=== PATIENT | female | born 1975 | race Caucasian/White ===

== ENCOUNTER 2025-01-29 13:49 | Outpatient (AMB) | payer OTHER, SELFPAY ==
--- NOTE | 2025-01-29 13:51 | A.OFFVIS_ITS ---
Vital Signs 01/29/25 13:53 Height 5 ft 3 in Weight 158 lb 11.725 oz BMI 28.1 BP 115/59 L Blood Pressure Location Lt brachial Position Sitting Pulse 89 Intake Visit Reasons: Gerd , referred by Dr. Hortensia Chaudhry Intake Note: Valerie presents in the office as a new patient for GERD. CC: States that when she eats she starts coughing and has issues with GERD. Needle Leader Required: No Allergies No Known Allergies Allergy (Verified 01/29/25 13:55) HPI HPI Gerd , referred by Dr. Hortensia Chaudhry: Details: HPI 50 yr old f with hx of GERD, hyperlipidemia, here for assessment She has 19 years of burning pain and also acid reflux can happen maybe once a month can be worse with some foods and give her more acid reflux she denies dysphagia, she can have coughing attacks if eats more than should pain can be 8/10, and is like contractions she has also noted worsening migraines can wake up her at night --reflux with pain and improves with massaging she has been on ppi prn she has constipation, but she goes daily, hemorrhoid comes out no blood in stool no nsaid use she takes esomeprazole and she thinks it works but unable to take every day due to joint pain that she thinks it causes she is non smoker, no alcohol she had colonoscopy and EGD and told they were normal apart from hemorrhoids Ba swallow: 10/03 - reflux, dysmotility, CT with small hiatal hernia ROS: Constitutional : No Weight loss, No Fever, No Chills ENT/Mouth : No sore throat, No Rhinorrhea Eyes: No Swelling, No Redness Cardiovascular : No Chest Pain, No SOB, No Edema Respiratory : No Cough, No Sputum, No Wheezing Gastrointestinal : see HPI Genitourinary : NO Dysuria, No Urinary Frequency, No Hematuria, No Urgency Musculoskeletal : + joint pain, No Myalgias, No Joint Swelling Skin : No Skin Lesions, No rash Neuro : No Weakness, No Numbness, No Dizziness, No Headache Psych : No Anxiety/Panic, No Depression Heme/Lymph: No Bruising, No Lymphadenopathy Endocrine : No Polyuria, No Polydipsia All other systems reviewed and are negative. 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 VITAL SIGNS:see workflow HEENT: Nonicteric sclerae, PERRLA, EOMI. Oropharynx clear. Moist mucous membranes. Conjunctivae appear well perfused. No thyroid mass. CHEST: Chest wall is nontender. HEART: Regular rate and rhythm without murmurs. LUNGS: Clear to auscultation bilaterally. ABDOMEN: Soft, positive bowel sounds, tender RUQ pos murphys, no organomegaly.no flank tenderness SKIN: No rash, no excessive bruising, petechiae, or purpura. NEUROLOGIC: Cranial nerves II-XII intact without motor/sensory deficit. Psych: normal affect A/P: 1/ Nausea and epigastric pain, with RUQ tenderness, could be gallbladder dz -may also be worsening her GERD PLAN: 1/ H pylori breath test--stop ppi for 2 weeks, use carafate meantime 2/ US scan 3/ might try vonaprazon if insurance allows, may also need repeat EGD to re eval upper GI tract PFSH Surgical History (Updated 01/29/25 @ 13:55 by CHERELLE Blake) Hx of colonoscopy History of esophagogastroduodenoscopy (EGD) Physical Exam Vital Signs: Last Vital Signs Pulse 89 01/29/25 13:53 BP 115/59 L 01/29/25 13:53 BMI result Body Mass Index 28.1 Assessment & Plan Assessment & Plan (1) RUQ pain: Code(s): R10.11 - Right upper quadrant pain Category: Medical Plan: as above Orders: Orders US abdomen comp w elastography Today R10.11 - Right upper quadrant pain Medications: New sucralfate 1 g PO QIDACHS 60 tabs 0RF Coding Level of Care Code New Pt Level 4 (77588) Diagnoses RUQ pain R10.11
[2025-01-29 13:53] VITALS: BP 115/59; PULSE 89; BMI 28.1
--- OUTSIDE RECORDS SUMMARY | 2025-01-29 17:10 | XMS_ITS | Clinical Summary ---
Author Organization [facility] Address [address] [place] [address] Care Team Providers Care Corn Sheller Name Role Phone GiftyRodriSheridan PA-C Primary Care Provider Source Comments PLEASE NOTE, if this patient is a minor, it may be UNLAWFUL to discuss sensitive information that is contained in these records (such as FAMILY PLANNING, MENTAL HEALTH or SUBSTANCE ABUSE) with the minor patient's parent or other person without the patient's specific authorization.[facility] Allergies No known active allergies Medications loratadine (CLARITIN) 10 mg tablet Take 1 Tab by mouth once daily as needed for allergies. 30 Tab 6 01/17/2013 Active esomeprazole (NEXIUM) [address] capsuleIndicatio ns:Erosive esophagitis Take 1 Cap by mouth every morning before breakfast. 30 Cap 5 07/18/2013 Active vitamin D 2,000 unit capsuleIndicatio ns:Mild vitamin D deficiency Take 1 Cap by mouth once daily. 30 Cap 6 07/18/2013 Active Active Problems Problem Noted Date Diagnosed Date Erosive esophagitis on EGD 12/2011, continue Nexi um for life 07/18/2013 Social History Tobacco Use Types Packs/Day Years Used Date Smoking Tobacco: Never Smokeless Tobacco: Never Alcohol Use Standard Drinks/Week Comments No 0 (1 standard drink = 0.6 oz pur e alcohol) Comments No Sex and Gender Information Value Date Recorded Sex Assigned at Not on file Legal Sex Female 11:36 AM PDT Gender Identity Not on file Sexual Orientation Not on file Last Filed Vital Signs Vital Sign Reading Time Taken Comments Blood Pressure 90/60 07/18/2013 9:08 AM EDT Pulse 68 07/18/2013 9:08 AM EDT Temperature 36.3 C (97.3 F) 07/18/2013 9:08 AM EDT Respiratory Rate 16 07/18/2013 9:08 AM EDT Oxygen Saturation - - Inhaled Oxygen Concentration - - Weight 66.7 kg (147 lb) 07/18/2013 9:08 AM EDT Height 162.6 cm (5' 4 ) 07/18/2013 9:08 AM EDT Body Mass Index 25.23 07/18/2013 9:08 AM EDT Plan of Treatment Not on file Insurance [place] [employer] [place] [id number] Care Teams Corn Sheller Relationship Specialty Start Date End Date Sheridan Durbin PA-C [address] [place] [phone] PCP - General Internal Medicine 07/18/13
--- OUTSIDE RECORDS SUMMARY | 2025-01-29 17:11 | XMS_ITS | Patient Health Record ---
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 In accordance with the [facility] Ambiguous Test Code Policy dated October 2002, we have completed your order by using the closest currently or formerly recognized AMA panel. We have assigned Lipid Panel, Test Code #[id number] to this request. If this is not the testing you wished to receive on this specimen, please contact the [facility] Client Inquiry/Technical Services Department to clarify the test order. We appreciate your business. Comp. Metabolic Panel (14)-3 Reviewed date:08/31/2024 09:32:55 AM Interpretation: Performing Lab:[facility], [address], [place], Phone - [phone], Director - MDJodry Notes/Report: Glucose 94 70-99 mg/dL BUN 9 6-24 mg/dL Creatinine 0.66 0.57-1.00 mg/dL eGFR 108 >59 mL/min/1.73 BUN/Creatinine Ratio 14 9-23 Sodium 137 134-144 mmol/L Potassium 4.4 3.5-5.2 mmol/L Chloride 102 96-106 mmol/L Carbon Dioxide, Total 18 20-29 mmol/L Calcium 9.5 8.7-10.2 mg/dL Protein, Total 7.0 6.0-8.5 g/dL Albumin 4.4 3.9-4.9 g/dL Globulin, Total 2.6 1.5-4.5 g/dL Bilirubin, Total 0.7 0.0-1.2 mg/dL Alkaline Phosphatase 70 44-121 IU/L AST (SGOT) 18 0-40 IU/L ALT (SGPT) 18 0-32 IU/L Lipid [id number] Reviewed date:08/31/2024 09:32:45 AM Interpretation: Performing Lab:[facility], [address] [facility], [place], Phone - [phone], Director - Jania Notes/Report: Cholesterol, Total 290 100-199 mg/dL Triglycerides 234 0-149 mg/dL HDL Cholesterol 69 >39 mg/dL VLDL Cholesterol Jeramie 44 5-40 mg/dL LDL Chol Calc (NIH) 177 0-99 mg/dL Vitamin D, 36-[id number] Reviewed date:08/31/2024 09:33:09 AM Interpretation: Performing Lab:[facility], [address] [facility], [place], Phone - [phone], Director - Jania Notes/Report: Vitamin D, 25-Hydroxy 28.4 30.0-100.0 ng/mL Vitamin D deficiency has been defined by the [place] [employer] and an Endocrine Society practice guideline as a level of serum 25-OH vitamin D less than 20 ng/mL (1,2). The Endocrine Society went on to further define vitamin D insufficiency as a level between 21 and 29 ng/mL (2). 1. IOM ([place] of [employer]). 2010. Dietary reference intakes for calcium and D. [place]: The National Academies Press. 2. Kirk MF, [place], Patrick WINSTON, et al. Evaluation, treatment, and prevention of vitamin D deficiency: an Endocrine Society clinical practice guideline. JCEM. 2010; 96(7):1911-30. Sue Nuñez CMP14 Default A hand-written panel/profile was received from your office. In accordance with the [employer] Ambiguous Test Code Policy dated October 2002, we have completed your order by using the closest currently or formerly recognized AMA panel. We have assigned Comprehensive Metabolic Panel (14), Test Code #[id number] to this request. If this is not the testing you wished to receive on this specimen, please contact the [employer] Client Inquiry/Technical Services Department to clarify the test order. We appreciate your business. CBC With Differential/Platel et-[id number] Reviewed date:08/31/2024 09:33:04 AM Interpretation: Performing Lab:[facility], [address] [place] [address], Phone - [phone], Director - Jania Notes/Report: WBC 6.1 3.4-10.8 x10E3/uL RBC 4.02 3.77-5.28 x10E6/uL Hemoglobin 11.1 11.1-15.9 g/dL Hematocrit 33.7 34.0-46.6 % MCV 84 79-97 fL MCH 27.6 26.6-33.0 pg MCHC 32.9 31.5-35.7 g/dL RDW 13.7 11.7-15.4 % Platelets 267 150-450 x10E3/uL Neutrophils 61 Not Estab. % Lymphs 25 Not Estab. % Monocytes 11 Not Estab. % Eos 2 Not Estab. % Basos 1 Not Estab. % Neutrophils (Absolute) 3.8 1.4-7.0 x10E3/uL Lymphs (Absolute) 1.5 0.7-3.1 x10E3/uL Monocytes(Absolute) 0.6 0.1-0.9 x10E3/uL Eos (Absolute) 0.1 0.0-0.4 x10E3/uL Baso (Absolute) 0.0 0.0-0.2 x10E3/uL Immature Granulocytes 0 Not Estab. % Immature Grans (Abs) 0.0 0.0-0.1 x10E3/uL Hemoglobin [id number] Reviewed date:08/31/2024 09:08:06 AM Interpretation: Performing [facility], [address] [facility], [place], Phone - [phone], Director - Jania Notes/Report: Hemoglobin A1c 5.6 4.8-5.6 % . Prediabetes: 5.7 - 6.4 Diabetes: >6.4 Glycemic control for adults with diabetes: <7.0 Comp. Metabolic Panel (14)-3 Reviewed date:02/24/2024 11:27:48 AM Interpretation: Performing Lab:[facility], [address] [facility], Phone - [phone], Director - Justiny Notes/Report: Glucose 103 70-99 mg/dL BUN 15 6-24 mg/dL Creatinine 0.75 0.57-1.00 mg/dL eGFR 98 >59 mL/min/1.73 BUN/Creatinine Ratio 20 9-23 Sodium 141 134-144 mmol/L Potassium 4.6 3.5-5.2 mmol/L Chloride 104 96-106 mmol/L Carbon Dioxide, Total 22 20-29 mmol/L Calcium 9.7 8.7-10.2 mg/dL Protein, Total 6.9 6.0-8.5 g/dL Albumin 4.5 3.9-4.9 g/dL Globulin, Total 2.4 1.5-4.5 g/dL Bilirubin, Total 0.5 0.0-1.2 mg/dL Alkaline Phosphatase 68 44-121 IU/L AST (SGOT) 15 0-40 IU/L ALT (SGPT) 12 0-32 IU/L Lipid [id number] Reviewed date:02/24/2024 11:27:40 AM Interpretation: Performing Lab:[facility], [address] [facility], [place], Phone - [phone], Director - Justiny Notes/Report: Cholesterol, Total 204 100-199 mg/dL Triglycerides 94 0-149 mg/dL HDL Cholesterol 73 >39 mg/dL VLDL Cholesterol Jeramie 17 5-40 mg/dL LDL Chol Calc (NIH) 114 0-99 mg/dL Comp. Metabolic Panel (14)-3 Reviewed date:12/18/2024 02:34:23 PM Interpretation: Performing Lab:[facility], [address] [facility], [place], Phone - [phone], Director - Jania Notes/Report: Glucose 91 70-99 mg/dL BUN 12 6-24 mg/dL Creatinine 0.73 0.57-1.00 mg/dL eGFR 101 >59 mL/min/1.73 BUN/Creatinine Ratio 16 9-23 Sodium 138 134-144 mmol/L Potassium 4.4 3.5-5.2 mmol/L Chloride 103 96-106 mmol/L Carbon Dioxide, Total 20 20-29 mmol/L Calcium 10.3 8.7-10.2 mg/dL Protein, Total 7.4 6.0-8.5 g/dL Albumin 4.5 3.9-4.9 g/dL Globulin, Total 2.9 1.5-4.5 g/dL Bilirubin, Total 0.7 0.0-1.2 mg/dL Alkaline Phosphatase 67 44-121 IU/L Effective December 25, 2024 Alkaline Phosphatase reference interval will be changing to: Age Male Female 0 - 5 days 47 - 127 47 - 127 6 - 10 days 29 - 242 29 - 242 11 - 20 days 109 - 357 109 - 357 21 - 30 days 94 - 494 94 - 494 1 - 2 months 149 - 539 149 - 539 3 - 6 months 131 - 452 131 - 452 7 - 11 months 117 - 401 117 - 401 12 months - 6 years 158 - 369 158 - 369 7 - 12 years 150 - 409 150 - 409 13 years 156 - 435 78 - 227 14 years 114 - 375 64 - 161 15 years 88 - 279 56 - 134 16 years 74 - 207 51 - 121 17 years 63 - 161 47 - 113 18 - 20 years 51 - 125 42 - 106 21 - 50 years 47 - 123 41 - 116 51 - 80 years 49 - 135 51 - 125 >80 years 48 - 129 48 - 129 AST (SGOT) 19 0-40 IU/L ALT (SGPT) 20 0-32 IU/L Lipid Panel-[id number] Reviewed date:12/18/2024 02:33:40 PM Interpretation: Performing Lab:[facility], [address] [place] [address], [place], Phone - [phone], Director - Jania Notes/Report: Cholesterol, Total 219 100-199 mg/dL Triglycerides 149 0-149 mg/dL HDL Cholesterol 78 >39 mg/dL VLDL Cholesterol Jeramie 26 5-40 mg/dL LDL Chol Calc ([facility]) 115 0-99 mg/dL Reason For Referral Diagnosis 1 Chronic GERD (K21.9) Referral Organization [facility] [address] Referring Provider First Name DARRYL Referring Provider Last Name SCOTT Referring Provider Speciality Internal M edicine Referred Provider Specialty Gastroentero logy General Notes Stacie Claudio 2023 10:53:42 AM > referral sent to dr mcnally in [place] , [phone], f. Clinical Notes Ravi Paez 02:11:19 PM > refaxed to [phone], Solis Babcock 07/27/2024 10:47:36 AM > Called number 4 times and still can't get through. I lvm for a callback, Stacie Claudio 09/20/2024 03:59:26 PM > refaxed Referral Priority Routine Reason evaluate and treat Diagnosis 1 Encounter for screen ing for malignant neoplasm of skin (Z12.83) Referral Organization [facility] Referring Provider First Name [facility] Referring Provider Last Name SCOTT [facility] Referred Provider Specialty Dermatology General Notes [facility] , [address] [place] [address], p: [phone], f: [phone] Referral Priority Routine Reason Evaluate & Treat P ossible removal Diagnosis 1 Skin lesion (L98.9) Referral Organization [facility] Referring Provider First Name [facility] Referring Provider Last Name SCOTT Ref[facility] Referred Provider Specialty Dermatology General Notes Stacie Claudio 2024 02:23:57 PM > [facility] , Referral Priority Routine Reason Evaluate & Treat Diagnosis 1 Back pain, unspecifi ed back location, unspecified back pain laterality, unspecified chronicity (M54.9) Diagnosis 2 Sciatica, unspecifie d side (M54.30) Referral Organization [facility] Referring Provider First Name [facility] Referring Provider Last Name SCOTT Referring Provider [facility] Internal edicine Referred Provider Specialty Physical The rapist General Notes Stacie Claudio 2024 02:27:32 PM > [facility] [place] , [phone], [phone] Referral Priority Routine Medications Medication SIG (Take, Route, Frequency, Duration) Notes Start Date End Date Status Esomeprazole Magnesium 40 MG 1 capsule O rally Once a day; Duration: 90 days Active Hydrocortisone Acetate 25 MG 1 supposito ry Rectal Once a day; Duration: 30 days 10/20/2023 Active Famotidine 40 MG 1 tablet Orally at bedtime; Duration: 30 days Active Rosuvastatin Calcium 5 MG 1 tablet Orall y Once a day; Duration: 30 day(s) Active Social History Tobacco Use: Social History Observation Description Date Details (start date - stop date) Never Smoker NA - NA Tobacco Use/Smoking Question Answer Notes Are you a nonsmoker Alcohol Screen (Audit-C) Question Answer Notes Did you have a drink containing alcohol in the p ast year? No Points 0 Interpretation Negative Problems Problem Type SNOMED Code ICD Code Onset Dates Problem Status W/U Status Risk Notes Problem Vitamin D deficiency (88097581) Vitamin D deficiency, unspecified (E55.9) Active confirmed Problem Overweight (263042872) Overweight (E66.3) Active confirmed Problem Sciatica (43780787) Sciatica, unspecified side (M54.30) Active confirmed Problem Dysuria (09004783) Dysuria (R30.0) Active confi rmed Problem Vitamin D deficiency (89800174) Vitamin D deficiency (E55.9) Active confirmed Problem Gastroesophageal reflux disease without esophagitis (191568502) Gastroesophageal reflux disease without esophagitis (K21.9) Active confirmed Problem Kidney stone (79828544) Kidney stone on right side (N20.0) Active confirmed Problem Right lower quadrant pain (460710507) RLQ abdominal pain (R10.31) Active confirmed Problem Gastroesophageal reflux disease (disorder) (052131708) Chronic GERD (K21.9) Active confirmed Problem Hyperlipidemia (11771988) Hyperlipidemia, mild (E78.5) Active confirmed Problem Hypothyroidism (40303343) Adult hypothyroidism (E03.9) Active confirmed Problem Hyperlipidaemia (83249122) Borderline hyperlipidemia (E78.5) Active confirmed Vital Signs Heart Rate 88 /min 12/20/2024 Oximetry 96 % 12/20/2024 Blood pressure diastolic 72 mm Hg 12/20/2024 Height 64 in 12/20/2024 Blood pressure systolic 120 mm Hg 12/20/2024 Weight 160.6 lbs 12/20/2024 BMI 27.56 kg/m2 12/20/2024 Encounters Encounter Location Date Provider Diagnosis [facility] [address] [place] [address] 02/16/2024 DARRYL CHAVEZ Gastroesophageal ref lux disease without esophagitis K21.9 ; Overweight E66.3 and BMI 27.0-27.9,adult Z68.[address] [facility] [address] [place] [address] 09/20/2024 DARRYL ARCEOAN Adult general medica l exam Z00.[address] [facility] [address] [place] [address] 12/20/2024 RONALDHARLEY SCOTT Hyperlipidemia, mild E78.5 ; Gastroesophageal reflux disease without esophagitis K21.9 ; Back pain without radiation M54.9 and Vitamin D deficiency E55.[address] [facility] [address] [place] [address] 03/13/2024 RONALDHARLEY SCOTT Hemorrhoids, unspeci fied hemorrhoid type K64.[address] [facility] [address] [place] [address] 03/22/2024 DARRYL CHAVEZ [facility] [address] [place] [address] 06/19/2024 RONALDHARLEY SCOTT Hemorrhoids, unspeci fied hemorrhoid type K64.[address] [facility] [address] [place] [address] 06/20/2024 RONALDHARLEY ARCEOAN [facility] [address] [place] [address] 07/27/2024 DARRYL CHAVEZ [facility] [address] [place] [address] 07/27/2024 RONALDHARLEY SCOTT [facility] [address] [place] [address] 09/18/2024 RONALDHARLEY SCOTT Hemorrhoids, unspeci fied hemorrhoid type K64.9 [facility] [address] [place] [address] 10/16/2024 RONALDHARLEY SCOTT [facility] [address] [place] [address] 11/22/2024 RONALDHARLEY SCOTT [facility] [address] [place] [address] 12/19/2024 RONALDHARLEY SCOTT Hemorrhoids, unspeci fied hemorrhoid type K64.9 [facility] [address] [place] [address] 03/13/2024 DARRYL CHAVEZ 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 #Hyperlipidemia discussed lifestyle in detail, discussed rosuvastatin in August2022,Her cholesterol control responded very nicely and was within normal limits, she does not like taking prescription meds issues and therefore discontinued, her recent cholesterol in July 2023 is elevated again. We discussed her strong family history and lack of exercise. She understands and agrees to start cholesterol medication. #Prediabetes #Chronic gastroesophageal reflux disease mainly presenting as a dry cough, takes off and on omeprazole with good control, does not like taking prescription medications, as per her report had a normal Endoscopy in 2021.She also reports coughing spells lasting for a minute whenever she eatsWe had her see pastoral enterologist in June 2023, they suggested barium swallow. We do not have the results. But as per patient report there was no further recommendation after the test. She recalls that in the past she has been told she has issues with the lower esophageal sphincter. We do not have any reports. She would like to see a different employee relations consultant for second opinion. We will making an appointment with Dr. Mcnally. #Hemorrhoids, off-and-on bleeding, currently not bleeding. #Overweight: Briefly addressed lifestyle also to help with GERD. 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 #Hyperlipidemia discussed lifestyle in detail, discussed rosuvastatin in August2022,Her cholesterol control responded very nicely and was within normal limits, she does not like taking prescription meds issues and therefore discontinued, her recent cholesterol in July 2023 is elevated again. We discussed her strong family history and lack of exercise. She understands and agrees to start cholesterol medication. #Prediabetes #Chronic gastroesophageal reflux disease mainly presenting as a dry cough, takes off and on omeprazole with good control, does not like taking prescription medications, as per her report had a normal Endoscopy in 2021.She also reports coughing spells lasting for a minute whenever she eatsWe had her see pastoral enterologist in June 2023, they suggested barium swallow. We do not have the results. But as per patient report there was no further recommendation after the test. She recalls that in the past she has been told she has issues with the lower esophageal sphincter. We do not have any reports. She would like to see a different employee relations consultant for second opinion. We will making an appointment with Dr. Mcnally. #Hemorrhoids, off-and-on bleeding, currently not bleeding. #Overweight: Briefly addressed lifestyle also to help with GERD. 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 #Hyperlipidemia discussed lifestyle in detail, discussed rosuvastatin in August2022,Her cholesterol control responded very nicely and was within normal limits, she does not like taking prescription meds issues and therefore discontinued, her recent cholesterol is elevated again. We discussed her strong family history and lack of exercise. She understands and agrees to start cholesterol medication. #Prediabetes #Chronic gastroesophageal reflux disease mainly presenting as a dry cough, takes off and on omeprazole with good control, does not like taking prescription medications, She saw GI and had an endoscopyin June 2023, the She recalls that in the past she has been told she has issues with the lower esophageal sphincter And has been recommended ice modifications including dietary changes. She would like to see a different employee relations consultant for second opinion. We will making an appointment with Dr. Mcnally. #Hemorrhoids, off-and-on bleeding, currently not bleeding. We recommended discussing this with GI. #Overweight: Briefly addressed lifestyle also to help with GERD. Patient seen and examined. Comprehensive discussion was done on the following. 1. Nutrition: It is important to follow a healthy diet based on lots of vegetables and legumes and good fat. Avoid processed food and processed carbohydrates. Learn to prepare your own meals. Learn to read labels and avoid high fructose corn syrup, processed chemicals added to increase shelf life and preprepared meals. Avoid fast foods. Learn to eat slowly and plan meals for a week. Try to count calories and be mindful off daily calorie intake. Get into the habit of keeping an eye on your weight by using an appropriate scale. Learn to log exercise and discussed fitness Apps like [employer] which can help keep log off calories taken versus calories burned. Local food should be preferred. Discussed Dirty Dozen Versus Clean Fifteen. Discussed healthy supplements like fish oil, Tumeric, Curcumin, Melatonin, Resveratrol, Probiotics, Vitamin-D, Alpha-Lipoic acid, Vitamin-D and coconut oil. 2. It is important to exercise regularly. Is a good habit to walk at least 30-45 minutes a day. Gentle weightlifting with standard precautions to protect the back. Finding activity like cycling or hiking and get into the habit of engaging in it. Stretching before and after the exercises important. It is also important to contact me if there are any problems like shortness of breath, chest pain, back pain and joint or muscle pain associated with the exercise. 3. Discussed age appropriate screening guidelines. Colonoscopy needs to start at age 50 with stool for occult blood as appropriate. There is a new test that can test for genetic abnormalities in the stool sample. This would not replace a colonoscopy but could be used as a screening tool for patients who do not want a colonoscopy. We discussed the importance of early detection of colon cancer. 4. Discussed current guidelines with respect to breast examination, mammogram and pap smear for early detection of breast and cervical cancer. Patient advised to follow up with these appointments. 5. Discussed safe driving and no use of smart phone while driving 6. Age-appropriate immunizations were discussed. A tetanus booster is needed every 10 years. Flu vaccine is recommended every year just before the start of the flu season. Shingles vaccine is recommended after age 50 but not all insurances cover it. Pneumonia vaccine is given after age 65 unless there are certain comorbidities for which it is started earlier. 7. Diagnostic labs were discussed. These could include CBC CMP and lipids with fasting blood glucose and insulin levels. Vitamin D and hemoglobin A1c testing might be appropriate. 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 #Generalized body aches and pains especially upper back/sciatica/worse at night. Making appointment for physical therapy/also rec strongly recommended seeing a personal caregiver for full body strength training #Hyperlipidemia With coronary calcium scan of zero, discussed lifestyle in detail, discussed rosuvastatin in August2022, #Prediabetes #Chronic gastroesophageal reflux disease mainly presenting as a dry cough, takes off and on omeprazole with good control, does not like taking prescription medications, She saw GI and had an endoscopyin June 2023, the She recalls that in the past she has been told she has issues with the lower esophageal sphincter And has been recommended life style modifications including dietary changes. She has an upcoming apt. #Hemorrhoids, off-and-on bleeding, currently not bleeding. We recommended discussing this with GI. #Overweight: Briefly addressed lifestyle also to help with GERD. 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 #Generalized body aches and pains especially upper back/sciatica/worse at night. Making appointment for physical therapy/also rec strongly recommended seeing a personal caregiver for full body strength training #Hyperlipidemia With coronary calcium scan of zero, discussed lifestyle in detail, discussed rosuvastatin in August2022, #Prediabetes #Chronic gastroesophageal reflux disease mainly presenting as a dry cough, takes off and on omeprazole with good control, does not like taking prescription medications, She saw GI and had an endoscopyin June 2023, the She recalls that in the past she has been told she has issues with the lower esophageal sphincter And has been recommended life style modifications including dietary changes. She has an upcoming apt. #Hemorrhoids, off-and-on bleeding, currently not bleeding. We recommended discussing this with GI. #Overweight: Briefly addressed lifestyle also to help with GERD. 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 #Hyperlipidemia discussed lifestyle in detail, discussed rosuvastatin in August2022,Her cholesterol control responded very nicely and was within normal limits, she does not like taking prescription meds issues and therefore discontinued, her recent cholesterol in July 2023 is elevated again. We discussed her strong family history and lack of exercise. She understands and agrees to start cholesterol medication. #Prediabetes #Chronic gastroesophageal reflux disease mainly presenting as a dry cough, takes off and on omeprazole with good control, does not like taking prescription medications, as per her report had a normal Endoscopy in 2021.She also reports coughing spells lasting for a minute whenever she eatsWe had her see pastoral enterologist in June 2023, they suggested barium swallow. We do not have the results. But as per patient report there was no further recommendation after the test. She recalls that in the past she has been told she has issues with the lower esophageal sphincter. We do not have any reports. She would like to see a different employee relations consultant for second opinion. We will making an appointment with Dr. Mcnally. #Hemorrhoids, off-and-on bleeding, currently not bleeding. #Overweight: Briefly addressed lifestyle also to help with GERD. 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 #Generalized body aches and pains especially upper back/sciatica/worse at night. Making appointment for physical therapy/also rec strongly recommended seeing a personal caregiver for full body strength training #Hyperlipidemia With coronary calcium scan of zero, discussed lifestyle in detail, discussed rosuvastatin in August2022, #Prediabetes #Chronic gastroesophageal reflux disease mainly presenting as a dry cough, takes off and on omeprazole with good control, does not like taking prescription medications, She saw GI and had an endoscopyin June 2023, the She recalls that in the past she has been told she has issues with the lower esophageal sphincter And has been recommended life style modifications including dietary changes. She has an upcoming apt. #Hemorrhoids, off-and-on bleeding, currently not bleeding. We recommended discussing this with GI. #Overweight: Briefly addressed lifestyle also to help with GERD. 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 #Generalized body aches and pains especially upper back/sciatica/worse at night. Making appointment for physical therapy/also rec strongly recommended seeing a personal caregiver for full body strength training #Hyperlipidemia With coronary calcium scan of zero, discussed lifestyle in detail, discussed rosuvastatin in August2022, #Prediabetes #Chronic gastroesophageal reflux disease mainly presenting as a dry cough, takes off and on omeprazole with good control, does not like taking prescription medications, She saw GI and had an endoscopyin June 2023, the She recalls that in the past she has been told she has issues with the lower esophageal sphincter And has been recommended life style modifications including dietary changes. She has an upcoming apt. #Hemorrhoids, off-and-on bleeding, currently not bleeding. We recommended discussing this with GI. #Overweight: Briefly addressed lifestyle also to help with GERD. Plan Of Treatment Pending Test Test Name Order Date X ray : Thoracic spine 2 views LIPID PANEL, STANDARD 09/20/2024 LIPID PANEL, STANDARD 12/20/2024 LIPID PANEL, STANDARD 08/17/2023 LIPID PANEL, STANDARD 08/04/2022 LIPID PANEL, STANDARD 09/01/2022 LIPID PANEL, STANDARD 01/13/2023 LIPID PANEL, STANDARD 02/16/2024 THYROID PANEL WITH TSH 08/04/2022 COMPREHENSIVE METABOLIC PANEL 08/04/2022 COMPREHENSIVE METABOLIC PANEL 09/20/2024 COMPREHENSIVE METABOLIC PANEL 02/16/2024 COMPREHENSIVE METABOLIC PANEL 01/13/2023 COMPREHENSIVE METABOLIC PANEL 08/17/2023 COMPREHENSIVE METABOLIC PANEL 09/01/2022 COMPREHENSIVE METABOLIC PANEL 12/20/2024 COMPREHENSIVE METABOLIC PANEL 12/14/2023 CBC (INCLUDES DIFF/PLT) 12/14/2023 CBC (INCLUDES DIFF/PLT) 12/20/2024 CBC (INCLUDES DIFF/PLT) 01/13/2023 CBC (INCLUDES DIFF/PLT) 02/16/2024 CBC (INCLUDES DIFF/PLT) 08/04/2022 URINALYSIS, COMPLETE W/REFLEX TO CULTURE 12/14/2023 HEMOGLOBIN A1c 08/04/2022 HEMOGLOBIN A1c 01/13/2023 HEMOGLOBIN A1c 09/01/2022 HEMOGLOBIN A1c 02/16/2024 INSULIN 08/04/2022 VITAMIN D,25-OH,TOTAL,IA 08/04/2022 VITAMIN D,25-OH,TOTAL,IA 01/13/2023 VITAMIN D,25-OH,TOTAL,IA 02/16/2024 VITAMIN D,25-OH,TOTAL,IA 12/20/2024 Next Appt Details Provider Name:DARRYL CHAVEZ, 09:30:00 AM, [address], [place], [address], Insurance Providers Payer Name Payer Address Payer Phone Subscriber Number Group Number Insured Name Patient Relationship to Insured Coverage Start Date Coverage End Date Blue Benefits [place] [address] [address] [place] [address] [phone] [id number] Valerie Duenas Self - patient is the insured Medical (General) History Medical History History ICD Code GERD (gastroesophageal reflux disease) K 21.9 Migraine headache G43.909 Hyperlipidemia, mild E78.5 Prediabetes R73.03
== END 2025-01-29 14:45 | disposition home or self-care (01) ==
LOC: HO.HGI 13:49
PROVIDERS: PCP Internal Medicine; Visit Provider Internal Medicine Gastroenterology
DX: R10.11 Right upper quadrant pain (principal)
CPT/HCPCS: 99204

== ENCOUNTER 2025-02-14 08:50 | Outpatient (REF) | payer OTHER, SELFPAY ==
--- OUTSIDE RECORDS SUMMARY | 2025-02-14 10:09 | XMS_ITS | Patient Health Record ---
Author Organization [facility] [address] Address [address] [place] [address] Care Team Providers Care Yard Hand Name Role Phone DARRYL CHAVEZ Unavailable [phone] Allergies No Known Allergies Results Component Value Reference Range Notes Sue Nuñez LP Default Reviewed date:08/31/2024 09:08:06 AM Interpretation: Performing Lab:[facility], [address] [facility], Phone - [phone], Director - MDEmelydry Notes/Report: Sue Nuñez LP Default A hand-written panel/profile was received from your office. In accordance with the [facility] Ambiguous Test Code Policy dated October 2002, we have completed your order by using the closest currently or formerly recognized AMA panel. We have assigned Lipid Panel, Test Code #[id number] to this request. If this is not the testing you wished to receive on this specimen, please contact the [facility] Client Inquiry/Technical Services Department to clarify the test order. We appreciate your business. Comp. Metabolic Panel (14)-3 Reviewed date:08/31/2024 09:32:55 AM Interpretation: Performing Lab:[facility], [address], [place], Phone - [phone], Director - MDJodry Notes/Report: Glucose 94 70-99 [...] 0-40 IU/L ALT (SGPT) 18 0-32 IU/L Comp. Metabolic Panel (14)-3 Reviewed date:12/18/2024 02:34:23 PM Interpretation: Performing Lab:[facility], [address], [place], Phone - [phone], Director - Jania Notes/Report: Glucose 91 70-99 [...] IU/L ALT (SGPT) 20 0-32 IU/L Lipid Panel-[id number] Reviewed date:12/18/2024 02:33:40 PM Interpretation: Performing Lab:[facility], [address] [facility], Phone - [phone], Director - Jania Notes/Report: Cholesterol, Total 219 100-199 mg/dL Triglycerides 149 0-149 mg/dL HDL Cholesterol 78 >39 mg/dL VLDL Cholesterol Jeramie 26 5-40 mg/dL LDL Chol Calc (NIH) 115 0-99 mg/dL Lipid Panel-[id number] Reviewed date:08/31/2024 09:32:45 AM Interpretation: Performing Lab:[facility], [address] [facility], Phone - [phone], Director - Jania Notes/Report: Cholesterol, Total 290 100-199 mg/dL Triglycerides 234 0-149 mg/dL HDL Cholesterol 69 >39 mg/dL VLDL Cholesterol Jeramie 44 5-40 mg/dL LDL Chol Calc (NIH) 177 0-99 mg/dL Vitamin D, 11-Inftewl-[id number] Reviewed date:08/31/2024 09:33:09 AM Interpretation: Performing Lab:[facility], [address] [facility], Phone - [phone], Director - Jania Notes/Report: Vitamin D, 25-Hydroxy 28.4 30.0-100.0 ng/mL Vitamin D deficiency has been defined by the [place] of Medicine and an Endocrine Society practice guideline as a level of serum 25-OH vitamin D less than 20 ng/mL (1,2). The Endocrine Society went on to further define vitamin D insufficiency as a level between 21 and 29 ng/mL (2). 1. IOM ([place] of Medicine). 2010. Dietary reference intakes for calcium and D. [place]: The National Academies Press. 2. Kirk MF, [place], Patrick WINSTON, et al. Evaluation, treatment, and prevention of vitamin D deficiency: an Endocrine Society clinical practice guideline. JCEM. 2010; 96(7):1911-30. Sue Nuñez CMP14 Default A hand-written panel/profile was received from your office. In accordance with the [employer] Ambiguous Test Code Policy dated October 2002, we have completed your order by using the closest currently or formerly recognized AMA panel. We have assigned Comprehensive Metabolic Panel (14), Test Code #[id number] to this request. If this is not the testing you wished to receive on this specimen, please contact the [employer] [facility] Client Inquiry/Technical Services Department to clarify the test order. We appreciate your business. Hemoglobin [id number] Reviewed date:08/31/2024 09:08:06 AM Interpretation: Performing Lab:[facility], [address] [facility], [place], Phone - [phone], Director - Jania Notes/Report: Hemoglobin A1c 5.6 4.8-5.6 % . Prediabetes: 5.7 - 6.4 Diabetes: >6.4 Glycemic control for adults with diabetes: <7.0 Comp. Metabolic Panel (14)-3 Reviewed date:02/24/2024 11:27:48 AM Interpretation: Performing Lab:[facility], [address] [facility], [place], Phone - [phone], Director - Jania Notes/Report: Glucose 103 70-99 mg/dL BUN 15 [...] IU/L ALT (SGPT) 12 0-32 IU/L Lipid Panel-[id number] Reviewed date:02/24/2024 11:27:40 AM Interpretation: Performing Lab:[facility] [place], [address], [place], Phone - [phone], Director - Jania Notes/Report: Cholesterol, Total 204 100-199 mg/dL Triglycerides 94 0-149 mg/dL HDL Cholesterol 73 >39 mg/dL VLDL Cholesterol Jeramie 17 5-40 mg/dL LDL Chol Calc ([facility]) 114 0-99 mg/dL CBC With Differential/Platel et-[id number] Reviewed date:08/31/2024 09:33:04 AM Interpretation: Performing Lab:[facility] [place], [address], [place], Phone - [phone], Director - Jania Notes/Report: WBC 6.1 3.4-10.8 [...] % Immature Grans (Abs) 0.0 0.0-0.1 x10E3/uL Reason For Referral Diagnosis 1 Chronic GERD (K21.9) Referral Organization [facility] [address] Referring Provider First Name RONALDHARLEY Referring Provider Last Name CHAVEZ Referring Provider Speciality Internal M edicine Referred Provider Specialty Gastroentero logy General Notes Stacie Claudio 2023 10:53:42 AM > referral sent to dr mcnally in [place] , [phone], f. Clinical Notes Ravi Paez 02:11:19 PM > refaxed to [phone], Solis Babcock 07/27/2024 10:47:36 AM > Called number 4 times and still can't get through. I lvm for a callback, Stacie Claudio 09/20/2024 03:59:26 PM > refaxed Referral Priority Routine Reason evaluate and treat Diagnosis 1 Encounter for screen ing for malignant neoplasm of skin (Z12.83) Referral Organization [facility] Referring Provider First Name [facility] Referring Provider Last Name SCOTT [facility] Referred Provider Specialty Dermatology General Notes [facility] , [address] [place] [address], p: [phone], f: [phone] Referral Priority Routine Reason Evaluate & Treat P ossible removal Diagnosis 1 Skin lesion (L98.9) Referral Organization [facility] Referring Provider First Name [facility] Referring Provider Last Name SCOTT [facility] Referred Provider Specialty Dermatology General Notes Stacie Claudio 2024 02:23:57 PM > [facility], , Referral Priority Routine Reason Evaluate & Treat Diagnosis 1 Back pain, unspecifi ed back location, unspecified back pain laterality, unspecified chronicity (M54.9) Diagnosis 2 Sciatica, unspecifie d side (M54.30) Referral Organization [facility] Referring Provider First Name [facility] Referring Provider Last Name SCOTT Referring Provider [facility] Internal edicine Referred Provider Specialty Physical The rapist General Notes Stacie Claudio 2024 02:27:32 PM > [facility] , [phone], [phone] Referral Priority Routine Medications Medication SIG (Take, [...] Status Risk Notes Problem Vitamin D deficiency (10524400) Vitamin D deficiency, unspecified (E55.9) Active confirmed Problem Overweight (047288066) Overweight (E66.3) Active confirmed Problem Sciatica (49227250) Sciatica, unspecified side (M54.30) Active confirmed Problem Dysuria (06242767) Dysuria (R30.0) Active confi rmed Problem Vitamin D deficiency (32168436) Vitamin D deficiency (E55.9) Active confirmed Problem Gastroesophageal reflux disease without esophagitis (245820260) Gastroesophageal reflux disease without esophagitis (K21.9) Active confirmed Problem Kidney stone (38052991) Kidney stone on right side (N20.0) Active confirmed Problem Right lower quadrant pain (162122893) RLQ abdominal pain (R10.31) Active confirmed Problem Gastroesophageal reflux disease (disorder) (810247391) Chronic GERD (K21.9) Active confirmed Problem Hyperlipidemia (10501512) Hyperlipidemia, mild (E78.5) Active confirmed Problem Hypothyroidism (15151819) Adult hypothyroidism (E03.9) Active confirmed Problem Hyperlipidaemia (92482652) Borderline hyperlipidemia (E78.5) Active confirmed Vital Signs Heart Rate 88 /min 12/20/2024 Oximetry 96 % 12/20/2024 Blood pressure diastolic 72 mm Hg 12/20/2024 Height 64 in 12/20/2024 Blood pressure systolic 120 mm Hg 12/20/2024 Weight 160.6 lbs 12/20/2024 BMI 27.56 kg/m2 12/20/2024 Encounters Encounter Location Date Provider Diagnosis [facility] [address] [place] [address] 02/16/2024 DARRYL CHAVEZ Gastroesophageal ref lux disease without esophagitis K21.9 ; Overweight E66.3 and BMI 27.0-27.9,adult Z68.[address] [facility] [address] [place] [address] 09/20/2024 DARRYL ARCEOAN Adult general medica l exam Z00.[address] [facility] [address] [place] [address] 12/20/2024 RONALDHARLEY SCOTT Hyperlipidemia, mild E78.5 ; Gastroesophageal reflux disease without esophagitis K21.9 ; Back pain without radiation M54.9 and Vitamin D deficiency E55.[address] [facility] [address] [place] [address] 03/13/2024 RONALDHARLEY SCOTT Hemorrhoids, unspeci fied hemorrhoid type K64.[address] [facility] [address] [place] [address] 03/22/2024 DARRYL CHAVEZ [facility] [address] [place] [address] 06/19/2024 RONALDHARLEY SCOTT Hemorrhoids, unspeci fied hemorrhoid type K64.[address] [facility] [address] [place] [address] 06/20/2024 RONALDHARLEY ARCEOAN [facility] [address] [place] [address] 07/27/2024 DARRYL CHAVEZ [facility] [address] [place] [address] 07/27/2024 RONALDHARLEY SCOTT [facility] [address] [place] [address] 09/18/2024 RONALDHARLEY SCOTT Hemorrhoids, unspeci fied hemorrhoid type K64.9 [facility] [address] [place] [address] 10/16/2024 RONALDHARLEY SCOTT [facility] [address] [place] [address] 11/22/2024 RONALDHARLEY SCOTT [facility] [address] [place] [address] 12/19/2024 RONALDHARLEY SCOTT Hemorrhoids, unspeci fied hemorrhoid type K64.9 [facility] [address] [place] [address] 03/13/2024 DARRYL CHAVEZ [facility] [address] [place] [address] 03/28/2024 DARRYL CHAVEZ Assessments Encounter Date Diagnosis [...] She would like to see a different quality associate for second opinion. We will making an [...] She would like to see a different quality associate for second opinion. We will making an [...] She would like to see a different quality associate for second opinion. We will making an [...] log exercise and discussed fitness Apps like [employer] which can help keep log off calories [...] therapy/also rec strongly recommended seeing a personal development mentor for full body strength training #Hyperlipidemia With [...] therapy/also rec strongly recommended seeing a personal development mentor for full body strength training #Hyperlipidemia With [...] She would like to see a different quality associate for second opinion. We will making an [...] therapy/also rec strongly recommended seeing a personal development mentor for full body strength training #Hyperlipidemia With [...] therapy/also rec strongly recommended seeing a personal development mentor for full body strength training #Hyperlipidemia With [...] Thoracic spine 2 views LIPID PANEL, STANDARD 12/20/2024 LIPID PANEL, STANDARD 02/16/2024 LIPID PANEL, STANDARD 09/20/2024 LIPID PANEL, STANDARD 08/04/2022 LIPID PANEL, STANDARD 09/01/2022 LIPID PANEL, STANDARD 01/13/2023 LIPID PANEL, STANDARD 08/17/2023 THYROID PANEL WITH TSH 08/04/2022 COMPREHENSIVE METABOLIC PANEL 08/04/2022 COMPREHENSIVE METABOLIC PANEL 12/14/2023 COMPREHENSIVE METABOLIC PANEL 08/17/2023 COMPREHENSIVE METABOLIC PANEL 01/13/2023 COMPREHENSIVE METABOLIC PANEL 12/20/2024 COMPREHENSIVE METABOLIC PANEL 09/20/2024 COMPREHENSIVE METABOLIC PANEL 02/16/2024 COMPREHENSIVE METABOLIC PANEL 09/01/2022 CBC (INCLUDES DIFF/PLT) 02/16/2024 CBC (INCLUDES DIFF/PLT) 12/20/2024 CBC (INCLUDES DIFF/PLT) 01/13/2023 CBC (INCLUDES DIFF/PLT) 12/14/2023 CBC (INCLUDES DIFF/PLT) 08/04/2022 URINALYSIS, COMPLETE W/REFLEX TO CULTURE 12/14/2023 HEMOGLOBIN A1c 02/16/2024 HEMOGLOBIN A1c 08/04/2022 HEMOGLOBIN A1c 01/13/2023 HEMOGLOBIN A1c 09/01/2022 INSULIN 08/04/2022 VITAMIN D,25-OH,TOTAL,IA 08/04/2022 VITAMIN D,25-OH,TOTAL,IA 01/13/2023 VITAMIN D,25-OH,TOTAL,IA 02/16/2024 VITAMIN D,25-OH,TOTAL,IA 12/20/2024 Next Appt Details Provider Name:DARRYL CHAVEZ, 09:30:00 AM, [address], [place], [address], Insurance Providers Payer Name Payer Address Payer Phone Subscriber Number Group Number Insured Name Patient Relationship to Insured Coverage Start Date Coverage End Date Blue Benefits [place] [address] [address] [place] [address] [id number] Valerie Duenas Self - patient is the insured Medical (General) History Medical History History ICD Code GERD (gastroesophageal reflux disease) K 21.9 Migraine headache G43.909 Hyperlipidemia, mild E78.5 Prediabetes R73.03
== END 2025-02-14 08:51 | disposition home or self-care (01) ==
LOC: HO.LAB 08:50
PROVIDERS: PCP Internal Medicine; Visit Provider Internal Medicine Gastroenterology
DX: R10.11 Right upper quadrant pain (principal)
CPT/HCPCS: 83013